=== PATIENT | female | born 1970 | race Caucasian/White ===

== ENCOUNTER 2019-01-19 13:17 | Emergency (ER) | payer OTHER ==
[~2019-01-19] VITALS: Ht 160 cm; Wt 77.3 kg
[~2019-01-19 13:17] MED LIST: NAPR-1025 PO
[2019-01-19] MEDS ORDERED: TRAM200T30 PO (13:36)
[2019-01-19] MEDS ORDERED: IBUPROFEN 600 MG TABLET PO ONE (15:15)
[2019-01-19] MEDS ORDERED: LIDOCAINE 5% TRANSDERMAL PATCH TD ONE (15:15)
[2019-01-19] MEDS ORDERED: METHOCARBAMOL 500 MG TABLET PO ONE (15:15)
[2019-01-19 15:56] LABS: APPEARANCE,URINE CLOUDY (CLEAR); BILIRUBIN,URINE NEGATIVE (NEGATIVE); GLUCOSE, URINE (UA) NEGATIVE (NEGATIVE); KETONES,URINE NEGATIVE (NEGATIVE); LEUKOCYTE ESTERASE ,URINE LARGE (NEGATIVE); NITRATE,URINE POSITIVE (NEGATIVE); OCCULT BLOOD,URINE SMALL (NEGATIVE); PROTEIN,URINE NEGATIVE (NEGATIVE); UROBILINOGEN,URINE 0.2 mg/dL (<=1.0)
[2019-01-19 16:28] VITALS: BP 118/77
[2019-01-19 16:36] LABS: BACTERIA,URINE Many /HPF (None Seen); WBC,URINE 51-100 /HPF (0-5)
[2019-01-19 16:37] LABS: RBC,URINE 0-2 /HPF (0-2); SQUAMOUS EPITHELIAL CELL,UR Many /LPF (None Seen)
== END 2019-01-19 16:40 | disposition home or self-care (01) ==
LOC: EMS 13:17
DX: M54.5 Low back pain (principal)
CPT/HCPCS: 72100; 87086